=== PATIENT | female | born 1965 | race Caucasian/White ===

== ENCOUNTER 2024-08-10 15:44 | Inpatient (IN) | payer OTHER, SELFPAY ==
[2024-08-10] VITALS (8 sets, daily range): BP systolic 102–142; BP diastolic 63–85; PULSE 59–98; RESP 15–18; TEMP 36.6–37; O2SAT 98–99; BMI 25.3
--- NOTE | ~2024-08-10 | CT_ITS ---
CLINICAL HISTORY: dysarthria CT Head without contrast. CT angiography head and neck with contrast. 3D Postprocessing. Comparison: None Findings: HEAD CT: No intra-axial mass, midline shift, hydrocephalus, or acute hemorrhage. No significant atrophy-like change or white matter disease. The visualized paranasal sinuses and mastoid air cells are normal. The orbits are within normal limits. There is no acute fracture. HEAD AND NECK CTA: Aortic arch and cervical great vessels are patent. Intracranial arteries are patent. No aneurysm, dissection, or occlusion. Incidentally noted origin of the left posterior cerebral artery. No abnormal intracranial enhancement. The visualized thyroid gland is unremarkable. No cervical mass or fluid collection. Lung apices clear. No acute fracture. IMPRESSION: 1. Unremarkable head CT. 2. Patent head and neck CTA. This document has been electronically signed by: Jermaine Amaya MD on 08/10/2024 19:06:20
--- NOTE | ~2024-08-10 | MR_ITS ---
EXAMINATION: MR BRAIN WITHOUT IV CONTRAST HISTORY: TIA vs CVA TECHNIQUE: Sagittal T1 and FLAIR, and axial T1, FLAIR, T2, gradient echo, and diffusion weighted MR images of the brain were obtained. COMPARISON: Correlation is made with an unenhanced head CT dated 08/10/2024. FINDINGS: There is a large amount of magnetic stability artifact from the patient's braces. There are periventricular and subcortical white matter hyperintensities on the FLAIR and T2-weighted images which are nonspecific. These are most prominent adjacent to the trigones of the lateral ventricles. There is no mass effect or midline shift. No intra or extra-axial fluid collections are identified. No foci of restricted diffusion is seen, although the entire cerebellum and portions of the anterior aspects of the frontal lobes are completely obscured by artifact. Normal vascular flow voids are noted in the basilar and carotid arteries. The visualized paranasal sinuses are clear. MR/MR head/brain wo con IMPRESSION: 1. Large amount of magnetic susceptibility artifact which completely obscures the cerebellum and the anterior portions of the frontal lobes on diffusion-weighted images. No definite evidence of an acute infarct. 2. White matter hyperintensities most prominent adjacent to the trigones of the lateral ventricles. Differential diagnostic considerations include small vessel ischemic disease, demyelinating disease, migraine, Lyme disease, and vasculitis. Electronically signed by: Miles Powers MD 08/11/2024 02:04 PM EDT
--- NOTE | 2024-08-10 15:59 | ECG_ITS ---
Test Reason : WEAKNESS Blood Pressure : */* mmHG Vent. Rate : 83 BPM Atrial Rate : 83 BPM P-R Int : 174 ms QRS Dur : 108 ms QT Int : 366 ms P-R-T Axes : 59 27 45 degrees QTcB Int : 430 ms Normal sinus rhythm Normal ECG No previous ECGs available Referred By: Isaak Gerber Electronically Signed By: Den Duke
--- NOTE | 2024-08-10 16:01 | ED_ITS ---
HPI - General Adult General Chief complaint: General Medical Stated complaint: slurred speech, brain fog Time Seen by Provider: 08/10/24 16:00 Source: patient Mode of arrival: ambulatory Limitations: no limitations History of Present Illness ED Provider: Dr. Octavia Knapp HPI narrative: Patient comes to the emergency room complaining of multiple episodes of slurred speech. Patient states that today she was doing yd work with her daughter, within 1/2 hour, patient had 4 episodes of intermittent slurred speech. Patient's daughter got concerned, told her mother to lay down/take a nap. They stopped by [employer]. While patient was ordering her coffee, she struggled finding words, patient states she had ?brain fog? but was eventually able to get her order in. Patient then decided to come to the hospital. Patient states that back in 2011, she had a CVA. Related Data Allergies Allergy/AdvReac Type Severity Reaction Status Date / Time gluten Allergy Unknown Verified 08/10/24 15:56 milk Allergy Unknown Verified 08/10/24 15:56 Review of Systems 2 Review of Systems: Constitutional : No Weight loss, No Fever, No Chills, No Night Sweats, No Fatigue, No Malaise ENT/Mouth : No Hearing loss, No Ear Pain, No Nasal Congestion, No Sinus Pain, No Hoarseness, No sore throat, No Rhinorrhea, No Swallowing Difficulty Eyes: No Eye Pain, No Swelling, No Redness, No Foreign Body, No Discharge, No Vision Changes Cardiovascular : No Chest Pain, No SOB, No Dyspnea on Exertion, No Orthopnea, No Edema, No Palpitations Respiratory : No Cough, No Sputum, No Wheezing, No Smoke Exposure, No Dyspnea Gastrointestinal : No Nausea, No Vomiting, No Diarrhea, No Constipation, No abdominal Pain, No Hematochezia, No Melena Genitourinary : no irregular bleeding, No Dysuria, No Urinary Frequency, No Hematuria, No Urinary Incontinence, No Urgency, No Flank Pain, No Urinary Flow Changes, No Hesitancy Musculoskeletal : No joint pain, No Myalgias, No Joint Swelling Skin : No Skin Lesions, No rash Neuro : Complaining of intermittent dysarthria, No Weakness, No Numbness, No Paresthesias, No Loss of Consciousness, No Dizziness, No Headache Psych : No Anxiety/Panic, No Depression, No SI/HI/AH/VH, No Social Issues, Heme/Lymph: No Bruising, No Bleeding,No Lymphadenopathy Endocrine : No Polyuria, No Polydipsia, No Temperature Intolerance [facility] Past Medical History Medical History (Updated 08/10/24 @ 19:28 by Octavia Knapp MD) CVA (cerebral vascular accident) Hyperlipidemia Asthma Social History Social History Smoked in Last 30 Days: No Use of substances other than those prescribed or required for medical reasons: No Advance Directives: No Advance Directives Information Provided: No Do you have a plan to hurt others: No Plan Patient : No Physical Exam ED Vital Signs: Vital Signs - 24 hr 08/10/24 15:52 08/10/24 16:35 08/10/24 19:17 Temperature 98 F 98 F 98.5 F Pulse Rate 98 82 59 Respiratory Rate 18 18 18 Blood Pressure 142/85 H 123/64 Pulse Oximetry 98 99 Oxygen Delivery Method Room Air Room Air Room Air BMI result Body Mass Index 25.3 Const Other: Appearance: Alert. Oriented X3. No acute distress. Eyes: Pupils equal, round and reactive to light. ENT: Pharynx normal. Neck: Normal inspection. Neck supple. No lymph nodes noted. No crepitus CVS: Normal heart rate and rhythm. Pulses normal. Normal S1 and S2 Respiratory: No respiratory distress. Breath sounds normal. No Wheezing. No rales Abdomen: Soft and nontender. No rigidity. No distention. Skin: Skin warm and dry. Normal skin color. Normal skin turgor. Extremities: No lower extremity edema. No Lacerations. No Rash Neuro: Oriented X 3. No motor deficit. No sensory deficit. Moving all extremities. No slurred speech. CN 2 through 12 grossly intact Psych: calm, cooperative, normal affect NIH Stroke Scale Internal: Initial- Upon Arrival Level of Consciousness: Alert Level of Consciousness Questions: Answers both questions correctly Level of Consciousness Commands: Performs both tasks correctly Best Gaze: Normal Visual: No visual loss Facial Palsy: Normal Motor Arm (Right): No drift Motor Arm (Left): No drift Motor Leg (Right): No drift Motor Leg (Left): No drift Limb Ataxia: Absent Sensory: Normal Best Language: No aphasia Dysarthia: Normal Extinction and Inattention: No abnormality Score: 0 Course Course Course Narrative: RME, this is a rapid medical exam performed by Renny Gerber please refer to primary provider for complete H&P- 58 old female presents for evaluation of slurred speech and ?fogginess. ? her symptoms started 1 hour ago and lasted about 30 minutes prior to resolving. She has a previous stroke in 2011 with some right upper eyelid drooping that is chronic from that episode. She is not anticoagulated and not on antiplatelet medications. Currently she feels back to her baseline, she does have some right upper eyelid droop, no other neurologic findings Medications Administered Discontinued Medications Generic Name Dose Route Start Last Admin Trade Name Clay PRN Reason Stop Dose Admin Aspirin 325 mg 08/10/24 16:17 08/10/24 16:33 Aspirin Enteric Coated 325 Mg Tablet. PO 08/10/24 16:18 325 mg ONCE ONE Administration Sodium Chloride 1,000 mls @ 999 mls/hr 08/10/24 16:12 08/10/24 17:40 Ns IVCONT 08/10/24 17:12 Infused .Q1H1M ONE Infusion Iohexol 100 ml 08/10/24 16:51 08/10/24 16:51 Iohexol 350 Mg/Ml 100 Ml Infus..Btl IV 08/10/24 16:52 70 ml ONCE ONE Administration Medical Decision Making Medical Decision Making [facility] Narrative: My interpretation of labs: No significant abnormality in patient's hematology and chemistry, normal troponin CTA of the head and neck do not show any acute abnormality. In the emergency room, patient has not had any TIA like symptoms. Vitals are stable I discussed with the patient that given that she has been having intermittent dysarthria and history of CVA almost 13 years ago, it would be best to admit the patient, patient agrees with plan. I discussed the above-mentioned with from the Medicine team, patient being admitted Differential Diagnosis Differential Diagnoses: The differential diagnosis associated with the presentation includes (TIA, CVA, heat stroke) Admission/Observation Consideration of admission/observation: Escalation of care including admission/observation considered Consult Healthcare Provider Management of the patient was discussed with: Hospitalist Lab Data [facility] Lab Attestation statement: I reviewed the patient's lab results. 08/10/24 16:29 08/10/24 16:29 Labs: Lab Results 08/10/24 08/10/24 08/10/24 Range/Units 16:29 16:38 17:03 WBC 7.6 (4.8-10.8) X10*3/uL RBC 4.39 (4.20-5.50) X10*6/uL Hgb 13.8 (12.0-16.0) g/dl Hct 38.7 (37.0-47.0) % MCV 88.2 (80.0-98.0) fL MCH 31.4 (27.0-33.0) pg MCHC 35.7 H (31.0-35.0) g/dl RDW 12.5 (11.0-16.0) % Plt Count 287 (160-400) X10*3/uL MPV 10.1 (9.4-12.3) fL Immature Gran % (Auto) 0.3 (0.0-0.4) % Neut % (Auto) 66.6 (45-73) % Lymph % (Auto) 25.4 (20-40) % [place] % (Auto) 6.8 (2-11) % Eos % (Auto) 0.5 (0-4) % Baso % (Auto) 0.4 (0-2) % Lymph # (Auto) 1.9 (1.2-4.9) X10*3/uL [place] # (Auto) 0.5 (0.1-1.2) X10*3/uL Eos # (Auto) 0.0 (0.0-0.4) X10*3/uL Baso # (Auto) 0.0 (0.0-0.2) X10*3/uL Abs Immat Gran (auto) 0.02 (0.00-0.03) X10*3/uL Absolute Neuts (auto) 5.0 (2.0-8.3) x10*3/uL Absolute Nucleated RBC 0.000 (0.0-0.012) X10*3/uL Nucleated RBC % (auto) 0.0 (0.0-0.2) /100WBC PT 11.2 (10.9-12.4) SEC INR 1.0 (0.9-1.1) Sodium 142 (135-145) mmol/L Potassium 3.5 (3.3-5.1) mmol/L Chloride 107 (96-108) mmol/L Carbon Dioxide 22 (22-29) mmol/L Anion Gap 17 (12-20) BUN 18 H (9-16) mg/dL Creatinine 0.95 (0.5-1.4) mg/dL Estim Creat Clear Calc 54.8 Estimated GFR > 60 POC Glucose 69 90 (60-115) mg/dL Random Glucose 81 (60-115) mg/dL Calcium 9.8 (8.4-10.2) mg/dL Total Bilirubin 0.7 (0.0-1.0) mg/dL AST 26 (5-31) U/L ALT 23 (0-31) U/L Alkaline Phosphatase 73 (39-117) U/L Total Creatine Kinase 55 (26-140) U/L Troponin I High Sens < 2.7 (<3.5-17.0) ng/L Total Protein 7.7 (6.5-8.0) g/dL Albumin 4.6 (3.5-5.0) g/dL Lipase 16 (8-78) U/L Ethyl Alcohol < 10 mg/dL Independent Interpretation I performed an independent interpretation of an: EKG and CT Scan Interpretation: My interpretation of EKG: Normal sinus rhythm, heart rate 83, no ST segment depression or elevation, no T-wave inversion, QTC 430 Radiology Impression Discussion of test interpretation with radiology: I have reviewed the radiologist's reading. Radiologist Impression: HEAD CT: No intra-axial mass, midline shift, hydrocephalus, or acute hemorrhage. No significant atrophy-like change or white matter disease. The visualized paranasal sinuses and mastoid air cells are normal. The orbits are within normal limits. There is no acute fracture. HEAD AND NECK CTA: Aortic arch and cervical great vessels are patent. Intracranial arteries are patent. No aneurysm, dissection, or occlusion. Incidentally noted origin of the left posterior cerebral artery. No abnormal intracranial enhancement. The visualized thyroid gland is unremarkable. No cervical mass or fluid collection. Lung apices clear. No acute fracture. IMPRESSION: 1. Unremarkable head CT. 2. Patent head and neck CTA. Critical Care Time Critical Care Time Critical Care Time: Yes Total Critical Care Time: 60 Attestation: I have personally provided critical care time. Time includes review of lab data, radiology results, discussion with consultants, and monitoring for potential decompensation. Intervention performed as documented. Discharge Plan Discharge Clinical Impression: Brain TIA Patient Disposition: Admitted As Inpatient Print Language: Sinhala
[2024-08-10] MEDS: 0.9 % Sodium Chloride 1,000 ML 999 ML IVCONT (16:32)
[2024-08-10] MEDS: Aspirin Enteric Coated 325 MG TABLET.DR PO (16:33)
[2024-08-10 16:36] LABS: MANUAL DIFF FLAG NO
[2024-08-10 16:39] LABS: Basophils Percent Auto 0.4 % (0-2); Eosinophils Percent Auto 0.5 % (0-4); Hematocrit 38.7 % (37.0-47.0); Hemoglobin 13.8 g/dl (12.0-16.0); Imm Gran Abs Auto 0.02 X10*3/uL (0.00-0.03); Imm Gran Pct Auto 0.3 % (0.0-0.4); Lymphocytes Absolute Auto 1.9 X10*3/uL (1.2-4.9); Lymphocytes Percent Auto 25.4 % (20-40); Mean Corpuscular HGB Conc 35.7 g/dl (31.0-35.0); Mean Corpuscular Hemoglobin 31.4 pg (27.0-33.0); Mean Corpuscular Volume 88.2 fL (80.0-98.0); Mean Platelet Volume 10.1 fL (9.4-12.3); Monocytes Absolute Auto 0.5 X10*3/uL (0.1-1.2); Monocytes Percent Auto 6.8 % (2-11); Neutrophils Percent Auto 66.6 % (45-73); Platelet Count 287 X10*3/uL (160-400); Red Blood Count 4.39 X10*6/uL (4.20-5.50); Red Cell Distribution Width 12.5 % (11.0-16.0); White Blood Count 7.6 X10*3/uL (4.8-10.8)
[2024-08-10 16:42] LABS: Glucose, Whole Blood 69 mg/dL (60-115)
[2024-08-10 16:46] LABS: Prothrombin Time 11.2 SEC (10.9-12.4)
--- NOTE | 2024-08-10 16:46 | MHC.EDTECH ---
Patient POC was 69. I gave her apple juice to increase her POC.
[2024-08-10] MEDS: iohexoL 350 MG/ML 100 ML INFUS..BTL IV (16:51)
[2024-08-10 16:53] LABS: Ethanol < 10 mg/dL
[2024-08-10 16:54] LABS: Alanine Aminotransferase 23 U/L (0-31); Albumin Level 4.6 g/dL (3.5-5.0); Alkaline Phosphatase 73 U/L (39-117); Anion Gap 17 (12-20); Aspartate Amino Transferase 26 U/L (5-31); Bilirubin Total 0.7 mg/dL (0.0-1.0); Blood Urea Nitrogen 18 mg/dL (9-16); Calcium 9.8 mg/dL (8.4-10.2); Carbon Dioxide 22 mmol/L (22-29); Chloride 107 mmol/L (96-108); Creatinine Clr Calc Pharmacy 54.8; Estimated Glomerular Filt Rate > 60; Glucose Random 81 mg/dL (60-115); Lipase 16 U/L (8-78); Potassium 3.5 mmol/L (3.3-5.1); Sodium 142 mmol/L (135-145); Total Protein 7.7 g/dL (6.5-8.0)
[2024-08-10 17:03] LABS: Troponin-I High Sensitivity < 2.7 ng/L (<3.5-17.0)
[2024-08-10 17:08] LABS: Glucose, Whole Blood 90 mg/dL (60-115)
[2024-08-10 19:28] LABS: Appearance Urine Clear; Color Urine Yellow; Glucose Urine UA Negative (Negative); Leukocyte Esterase Urine Trace (Negative); Nitrite Urine Negative (Negative); Specific Gravity - Urine >= 1.030 (1.005-1.025); UMIC TRIGGER UACC YES; Urine Blood Negative (Negative); Urine Ketones Trace mg/dL (Negative); Urine Protein Negative (Neg-Trace)
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
--- NOTE | 2024-08-10 19:30 | PC.NURSE ---
Patient is alert and oriented x3, VSS. Patient denies any pain at present. Patient ambulated to restroom and back to her room independently with a steady gait. Patient currently resting on stretcher bed, call menjivar in patient's reach.
[2024-08-10 19:33] LABS: Bacteria Urine None Seen (None Seen); Hyaline Casts Urine 0-2 /LPF (0-2); RBC Urine 0-2 /HPF (0-2); Squamous Epithelial Cell Urine 0-2 /HPF (0-2); WBC Urine 0-5 /HPF (0-5)
[2024-08-10 19:38] LABS: Amphetamine Screen Urine Not Detected (Not Detect); Barbiturates, Urine Not Detected (Not Detect); Benzodiazepines Screen Urine Not Detected (Not Detect); Buprenorphine Scr Not Detected (Not Detect); Cannabinoid Screen Urine Not Detected (Not Detect); Cocaine Screen Urine Not Detected (Not Detect); Fentanyl, urine Not Detected (Not Detect); Methadone Screen, Urine Not Detected (Not Detect); Opiate Screen Urine Not Detected (Not Detect); Oxycodone Screen Urine Not Detected (Not Detect); Phencyclidine Screen Urine Not Detected (Not Detect)
[2024-08-10 19:52] LABS: Magnesium 2.1 mg/dL (1.6-2.6)
[2024-08-10 20:07] LABS: TSH reflex Free T4 2.07 uIU/mL (0.32-4.0)
[2024-08-10] MEDS: Sennosides 8.6 MG TABLET 17.2 MG PO (20:26)
[2024-08-10] MEDS: Enoxaparin Sodium 40 MG/0.4 ML SYRINGE SUBCUT (20:27)
--- NOTE | 2024-08-10 20:34 | PC.NURSE ---
Family visiting at bedside and brought patient food. Regular diet order in place and pt eating.
[2024-08-10 21:56] LABS: Glucose, Whole Blood 96 mg/dL (60-115)
[2024-08-11] VITALS (7 sets, daily range): BP systolic 92–128; BP diastolic 62–80; PULSE 58–87; RESP 12–17; TEMP 36.3–36.8; O2SAT 96–99; BMI 24.5; BMI 24.4
[2024-08-11] MEDS: 0.9 % Sodium Chloride Flush 3 ML SYRINGE IVFLUSH ×3 (00:03→18:31)
[2024-08-11 05:35] LABS: MANUAL DIFF FLAG NO
[2024-08-11 05:36] LABS: Basophils Percent Auto 0.6 % (0-2); Eosinophils Absolute Auto 0.1 X10*3/uL (0.0-0.4); Eosinophils Percent Auto 1.3 % (0-4); Hematocrit 36.9 % (37.0-47.0); Hemoglobin 12.6 g/dl (12.0-16.0); Imm Gran Abs Auto 0.01 X10*3/uL (0.00-0.03); Imm Gran Pct Auto 0.1 % (0.0-0.4); Lymphocytes Absolute Auto 2.5 X10*3/uL (1.2-4.9); Lymphocytes Percent Auto 37.4 % (20-40); Mean Corpuscular HGB Conc 34.1 g/dl (31.0-35.0); Mean Corpuscular Hemoglobin 31.4 pg (27.0-33.0); Mean Platelet Volume 10.4 fL (9.4-12.3); Monocytes Absolute Auto 0.6 X10*3/uL (0.1-1.2); Monocytes Percent Auto 8.3 % (2-11); Neutrophils Absolute Auto 3.5 x10*3/uL (2.0-8.3); Neutrophils Percent Auto 52.3 % (45-73); Platelet Count 274 X10*3/uL (160-400); Red Blood Count 4.01 X10*6/uL (4.20-5.50); Red Cell Distribution Width 12.7 % (11.0-16.0); White Blood Count 6.8 X10*3/uL (4.8-10.8)
[2024-08-11 05:51] LABS: D Dimer High Sensitivity < 150 NG/ML
[2024-08-11 05:57] LABS: B Type Natriuretic Peptide 65 pg/mL (<100)
[2024-08-11 05:58] LABS: Alanine Aminotransferase 12 U/L (0-31); Albumin Level 3.8 g/dL (3.5-5.0); Anion Gap 13 (12-20); Aspartate Amino Transferase 22 U/L (5-31); Bilirubin Total 0.5 mg/dL (0.0-1.0); Blood Urea Nitrogen 15 mg/dL (9-16); Calcium 8.9 mg/dL (8.4-10.2); Carbon Dioxide 21 mmol/L (22-29); Chloride 112 mmol/L (96-108); Cholesterol 187 mg/dL (<200); Creatinine Clr Calc Pharmacy 66.8; Estimated Glomerular Filt Rate > 60; Glucose Random 86 mg/dL (60-115); HDL Cholesterol 64 mg/dL (>40); LDL Cholesterol Calculated 113 mg/dL (<100); Potassium 3.8 mmol/L (3.3-5.1); Sodium 142 mmol/L (135-145); Total Protein 6.3 g/dL (6.5-8.0); Triglycerides 50 mg/dL (<150)
[2024-08-11 06:04] LABS: Alkaline Phosphatase 60 U/L (39-117)
--- NOTE | 2024-08-11 07:00 | CA_ITS ---
Transthoracic Echocardiogram Patient (Last, First, Middle): Nia Torres, Gender: Female Date of : 1965 Age: 58 Procedure Date: 08/11/2024 Procedure Type: Transthoracic Echocardiogram Location: ER Height: 157.48 cm Weight: 62.6 kg BSA: 1.63 m2 Heart Rate: 67 bpm BP: 128 / 75 mmHg Ssis Developer: LEA Referring MD: Kaitlin Dubois [facility] Life Enrichment Specialist: Elvin Winchester MD Symptoms: TIA vs CVA Study Quality: Adequate w/Definity ECG Rhythm: Sinus Conclusions: - 1. PFO noted on bubble contrast study after Valsalva release 2. Normal LV ejection fraction of 65-70% 3. Normal cardiac valvular Dopplers 4. Normal RV systolic pressure Findings Procedure Information Contrast agent, definity, is being given per protocol without apparent complications. Left Ventricle Normal left ventricular size, thickness, and systolic function. The visually estimated ejection fraction is between 65-70%. Spectral Doppler is indicative of a normal filling pattern. Right Ventricle Normal right ventricular cavity size and systolic function. Atria Both atria are normal in size. Contrast study for right to left shunting is moderately positive with Valsalva maneuver. Patent foramen ovale detected using by contrast. There is shunt reversal with the release phase of the Valsalva maneuver. Aortic Valve Normal aortic valve structure and function. There is no aortic valve stenosis. There is no aortic valve regurgitation. Mitral Valve Normal mitral valve structure and function. There is trace mitral valve regurgitation. There is no mitral valve stenosis. Pulmonic Valve The pulmonic valve is likely normal. Tricuspid Valve Normal tricuspid valve structure. There is trace tricuspid valve regurgitation. The right ventricular systolic pressure is normal. The right ventricular systolic pressure is 11 mmHg. Normal right atrial pressure. There is no evidence of pulmonary hypertension. Great Vessels All visible segments of the aorta are normal in size. The pulmonary artery was not well visualized. Venous The inferior vena cava is normal in size and collapses greater than 50% with inspiration. Pericardium/Pleural There is no evidence of pericardial effusion. Prior Study Comparison No prior study available for comparison. Measurements 2D Linear Measurements IVSd: 0.67 0.6-0.9/0.6-1.0 cm LVIDd: 4.63 3.9-5.3/4.2-5.9 cm LVIDd Index: 2.84 2.4-3.2/2.2-3.1 cm/m2 LVIDs: 3.10 2.0-3.6 cm LVPWd: 0.64 0.7-1.1 cm LA Diam: 2.90 2.7-3.8/3.0-4.0 cm LAIDs Index: 1.78 1.5-2.3 cm/m2 LV Mass: 115.41 67-162/88-224 g LV Mass Index: 70.80 43-95/49-115 g/m2 LVOT Diam: 2.00 3.0+(-)1.3 cm 2D Systolic Function EF 4C: 68.30 >55% EF 2C: 60.30 >55% EF BiP: 65.40 >55% Mitral Valve MV Pk E: 0.80 MV PK A: 0.74 MV Decel Time: 197.00 E/A: 1.10 E'Lateral: 11.10 E'Medial: 7.94 E/E' Med: 10.00 E/E' Lat: 7.20 PHT: 58.00 MVA PHT: 3.79 Decel [place]: 4.04 Aortic Valve AoV Pk Osiel: 1.30 AoV Pk Grad: 7.00 BERNARDA: 3.98 LVOT LVOT Pk Osiel: 1.48 LVOT Mn Osiel: 0.96 LVOT VTI: 0.30 LVOT Pk Grad: 9.00 LVOT Mn Grad: 5.00 LVOT Diam: 2.00 LVOT Area: 3.14 Diastolic Function MV Pk E: 0.80 MV Pk A: 0.74 E/A: 1.10 E'Medial: 7.94 E/E' Med: 10.00 E' Laterial: 11.10 E/E' Lat: 7.20 Right Ventricle TAPSE (mm): 25.80 TVS' Osiel: 13.60 Tricuspid Valve TR Pk Osiel: 1.42 TR Pk Grad: 8.00 RA Press: 3.00 RVSP: 11.00 Great Vessels Aorta Sinus of Valsalva: 3.70 2.0-3.5 cm Ao Asc: 3.70 2.1-3.4 cm Ao Arch: 2.30 Ao Desc: 2.00 Pulmonary Veins Pulm Vein S/D 1.10 Pulmonary Valve PV Pk Osiel: 0.67 Peak PV Grad: 2.00 Updated in Other Vendor System with Status of Final Elvin Winchester MD electronically signed on 08/11/2024 3:07:20 PM with status of Final
[2024-08-11 07:25] LABS: Glucose, Whole Blood 88 mg/dL (60-115)
--- NOTE | 2024-08-11 08:21 | P.PNIM_ITS ---
Subjective Subjective Date of Service: 08/11/24 Interval History: symptoms resolved Physical Exam 2 Vital Signs: Vital Signs: Last Vital Signs Temp 97.3 F 08/11/24 07:52 Pulse 68 08/11/24 07:52 Resp 17 08/11/24 07:52 BP 128/75 08/11/24 07:52 Pulse Ox 97 08/11/24 07:52 O2 Del Method Room Air 08/11/24 07:52 BMI result Body Mass Index 25.3 General: AO X 3, no acute distress Resp: CTA bilateral, no accessory muscles used CVS: S1,S2,RRR GI: soft, non tender, non distended Neuro: right eye ptosis Psych: appropriate affect, appropriate insight Objective Data Active Medications Acetaminophen (Acetaminophen 325 Mg Tablet) 650 mg PO Q6H PRN PRN Reason: Pain, Mild 1-3,fever,headache Aspirin (Aspirin 81 Mg Tab.Chew) 81 mg PO DAILY [facility] Calcium Carbonate (Calcium Carbonate 750 Mg Tab.Chew) 750 mg PO Q4H PRN PRN Reason: Heartburn Enoxaparin Sodium (Enoxaparin Sodium 40 Mg/0.4 Ml Syringe) 40 mg SUBCUT Q24H [facility] Last Admin: 08/10/24 20:27 Dose: 40 mg Documented By: BASILIO Magnesium Hydroxide (Milk Of Magnesia 30 Ml Oral.Susp) 30 ml PO DAILY PRN PRN Reason: Constipation Melatonin (Melatonin 3 Mg Tablet) 6 mg PO BEDTIME PRN PRN Reason: Insomnia Ondansetron HCl (Ondansetron Hcl 4 Mg/2 Ml Vial) 4 mg IVPUSH Q8H PRN PRN Reason: Nausea and Vomiting Senna (Sennosides 8.6 Mg Tablet) 17.2 mg PO BEDTIME [facility] Last Admin: 08/10/24 20:26 Dose: 17.2 mg Documented By: BASILIO Sodium Chloride (0.9 % Sodium Chloride Flush 3 Ml Syringe) 3 ml IVFLUSH QSHIFT [facility] Last Admin: 08/11/24 00:03 Dose: 3 ml Documented By: SELENA Labs 08/11/24 05:06 08/11/24 05:06 Labs: Laboratory Results - last 24 hr 08/10/24 08/10/24 08/10/24 16:29 16:38 17:03 MCV 88.2 MCH 31.4 MCHC 35.7 H RDW 12.5 Plt Count 287 MPV 10.1 Immature Gran % (Auto) 0.3 Neut % (Auto) 66.6 Lymph % (Auto) 25.4 Kleberg % (Auto) 6.8 Eos % (Auto) 0.5 Baso % (Auto) 0.4 Lymph # (Auto) 1.9 Kleberg # (Auto) 0.5 Eos # (Auto) 0.0 Baso # (Auto) 0.0 Abs Immat Gran (auto) 0.02 Absolute Neuts (auto) 5.0 Absolute Nucleated RBC 0.000 Nucleated RBC % (auto) 0.0 PT 11.2 INR 1.0 D-Dimer High Sensitivty Anion Gap 17 Estim Creat Clear Calc 54.8 Estimated GFR > 60 POC Glucose 69 90 Random Glucose 81 Calcium 9.8 Magnesium 2.1 Total Bilirubin 0.7 AST 26 ALT 23 Alkaline Phosphatase 73 Total Creatine Kinase 55 B-Natriuretic Peptide Total Protein 7.7 Albumin 4.6 Triglycerides Cholesterol LDL Cholesterol, Calc HDL Cholesterol Lipase 16 TSH 2.07 Urine Color Urine Appearance Urine pH Ur Specific [place] Urine Protein Urine Glucose (UA) Urine Ketones Urine Blood Urine Nitrite Ur Leukocyte Esterase Urine RBC Urine WBC Ur Squamous Epith Cells Urine Bacteria Hyaline Casts Urine Opiates Screen Ur Buprenorphine Scrn Ur Oxycodone Screen Urine Methadone Screen Urine Fentanyl Screen Ur Barbiturates Screen Ur Phencyclidine Scrn Ur Amphetamines Screen U Benzodiazepines Scrn Urine Cocaine Screen U Marijuana (THC) Screen Ethyl Alcohol < 10 08/10/24 08/10/24 08/11/24 19:20 21:50 05:06 MCV 92.0 MCH 31.4 MCHC 34.1 RDW 12.7 Plt Count 274 MPV 10.4 Immature Gran % (Auto) 0.1 Neut % (Auto) 52.3 Lymph % (Auto) 37.4 Kle[place] % (Auto) 8.3 Eos % (Auto) 1.3 Baso % (Auto) 0.6 Lymph # (Auto) 2.5 [place] # (Auto) 0.6 Eos # (Auto) 0.1 Baso # (Auto) 0.0 Abs Immat Gran (auto) 0.01 Absolute Neuts (auto) 3.5 Absolute Nucleated RBC 0.000 Nucleated RBC % (auto) 0.0 PT INR D-Dimer High Sensitivty < 150 Anion Gap 13 Estim Creat Clear Calc 66.8 Estimated GFR > 60 POC Glucose 96 Random Glucose 86 Calcium 8.9 D Magnesium Total Bilirubin 0.5 AST 22 ALT 12 Alkaline Phosphatase 60 Total Creatine Kinase B-Natriuretic Peptide 65 Total Protein 6.3 L Albumin 3.8 Triglycerides 50 Cholesterol 187 LDL Cholesterol, Calc 113 H HDL Cholesterol 64 Lipase TSH Urine Color Yellow Urine Appearance Clear Urine pH 8.0 Ur Specific [place] >= 1.030 H Urine Protein Negative Urine Glucose (UA) Negative Urine Ketones Trace Urine Blood Negative Urine Nitrite Negative Ur Leukocyte Esterase Trace H Urine RBC 0-2 Urine WBC 0-5 Ur Squamous Epith Cells 0-2 Urine Bacteria None Seen Hyaline Casts 0-2 Urine Opiates Screen Not Detected Ur Buprenorphine Scrn Not Detected Ur Oxycodone Screen Not Detected Urine Methadone Screen Not Detected Urine Fentanyl Screen Not Detected Ur Barbiturates Screen Not Detected Ur Phencyclidine Scrn Not Detected Ur Amphetamines Screen Not Detected U Benzodiazepines Scrn Not Detected Urine Cocaine Screen Not Detected U Marijuana (THC) Screen Not Detected Ethyl Alcohol 08/11/24 07:21 MCV MCH MCHC RDW Plt Count MPV Immature Gran % (Auto) Neut % (Auto) Lymph % (Auto) [place] % (Auto) Eos % (Auto) Baso % (Auto) Lymph # (Auto) [place] # (Auto) Eos # (Auto) Baso # (Auto) Abs Immat Gran (auto) Absolute Neuts (auto) Absolute Nucleated RBC Nucleated RBC % (auto) PT INR D-Dimer High Sensitivty Anion Gap Estim Creat Clear Calc Estimated GFR POC Glucose 88 Random Glucose Calcium Magnesium Total Bilirubin AST ALT Alkaline Phosphatase Total Creatine Kinase B-Natriuretic Peptide Total Protein Albumin Triglycerides Cholesterol LDL Cholesterol, Calc HDL Cholesterol Lipase TSH Urine Color Urine Appearance Urine pH Ur Specific [place] Urine Protein Urine Glucose (UA) Urine Ketones Urine Blood Urine Nitrite Ur Leukocyte Esterase Urine RBC Urine WBC Ur Squamous Epith Cells Urine Bacteria Hyaline Casts Urine Opiates Screen Ur Buprenorphine Scrn Ur Oxycodone Screen Urine Methadone Screen Urine Fentanyl Screen Ur Barbiturates Screen Ur Phencyclidine Scrn Ur Amphetamines Screen U Benzodiazepines Scrn Urine Cocaine Screen U Marijuana (THC) Screen Ethyl Alcohol Assessment and Plan (1) Slurred speech: Status: Acute Plan 58F PMH low back pain, small PFO, CVA in 2011, chronic right eye ptosis presented with episode of slurred speech and fatigue slurred speech/fatigue rule out tia/cva ?MG - check antibodies asa, statin, pt/OT, neuro, check mri, echo history of cva asa, statin dvt prophylaxis - lovenox full code reason for continued hospitalization: working up slurred speech Quality Stroke Does the patient have a stroke diagnosis?: No Reason for No Anti-thrombotic by Day Two: N/A - Med Ordered VTE Prior VTE?: No VTE Risk Level:: Medical - moderate - high VTE Device Contraindication: N/A - Device Ordered VTE Drug Contraindication: N/A - Med Ordered
[2024-08-11] MEDS: Aspirin 81 MG TAB.CHEW PO (08:55)
--- NOTE | 2024-08-11 09:00 | PC.NURSE ---
Pt A&O X4 VSS Denies cmplaints at this time.
[2024-08-11 09:03] LABS: Estimated Average Glucose 108 mg/dL; Hemoglobin A1C 115.1551 umol/L; Hemoglobin A1c % 5.4 % (<6.0); Total Hemoglobin (HGBA1C) 3284.2595 umol/L
--- NOTE | 2024-08-11 09:15 | PHA.MEDREC ---
Addendum entered by Rahel Mark RP 08/11/24 09:22: Reviewed by [facility] Original Note: Pharmacy Consult ? Medication Reconciliation Pharmacy has completed the medication reconciliation. Patient states she is only taking Meloxicam 15 mg and Pregabalin 50 mg at bedtime, even though claims has Pregabalin 50 mg BID last fill date 05/22/24.
--- NOTE | 2024-08-11 09:15 | MHC.SLORD ---
Speech Language Pathology Order Status: BELLSTAND ATTENDANT consult cx per MD no longer needed.
--- NOTE | 2024-08-11 12:29 | MHC.CM.PN ---
CM met with Patient at bedside, in the ED. Patient lives in a house with her 2 children, ages 17 and 21 years of age. Per PT, no PT is indicated;Patient is at baseline. Home self care is the Patient's goal and CM has initiated and will follow for dc planning. PCP is Dr. Taveras and Patient's car is here for dc to home vs her Route Driver providing transport.
--- NOTE | 2024-08-11 15:11 | MHC.STROKE ---
Met with patient in ED bed 8 Pt awake, alert and oriented x 4. No deficits noted. Pt is pleasant, engaged in conversation. Stroke Education provided. Pamphlet given and all questions answered. Risk factors discussed including medical history, medications, activity, diet, and social hx. Awaiting MRI results and neuro consult. Pt aware and agreeable to plan. Patient is Hoping to be discharged either today or tomorrow. Will continue to assist as needed.
--- NOTE | 2024-08-11 16:12 | PM.NEUROCN ---
History of Present Illness Data of Consult Service Date: 08/11/24 Primary Care Provider: Kianna Johnson MD [facility] Reason for consult: transient generalized weakness This is a 58-year-old female presented to the emergency department after a sudden onset of head to toe body fatigue with heaviness, slurred speech after working in the yard approximately 2 hours today. Symptoms did completely resolve. She has past medical history of chronic low back pain secondary to degenerative joint disease, PFO dx 2011 too small to repair, left hip osteoarthritis currently receiving cortisone injections, migraines without aura,insomnia, previous ? CVA 2011 was not formally diagnosed until 2013 at [facility] with chronic right eye ptosis, GERD, intermittent dysphagia especially when eating the 1st few bites of food, seasonal asthma using rescue inhaler only. Due to her history of CVA, patient decided to be seen today. Patient states that she has been experiencing increased shortness of breath especially with exertion and this head to toe fatigue with heaviness not just today but when she is exerting herself. Patient's last migraine was approximately 6 months prior. Patient was supposed to be taking aspirin daily but has not been taking this medication for some time. Head CT and CTA of the head and neck were all unremarkable. No evidence of previous stroke found on head CT. MRI show sno acute stroke. peritrigonal white matter lesions and some scattered deep white matter non specific lesions c/w microvascular disease. Patient's blood sugar was 69 here in the ED. patient denies history of low blood sugar. Patient has been started recently on Lyrica for her lower back pain. Patient takes no other usual prescription meds. Patient was recently prescribed an anti-inflammatory by her orthopedist for her left hip pain. 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 Travel History Ebola Risk: Travel/Contact With Anyone From Affected Area/s: No Has Patient Experienced Ebola Symptoms: No Meds Allergies Allergy/AdvReac Type Severity Reaction Status Date / Time gluten Allergy Unknown Verified 08/10/24 15:56 milk Allergy Unknown Verified 08/10/24 15:56 Active Medications: Current Medications Acetaminophen (Acetaminophen 325 Mg Tablet) 650 mg PO Q6H PRN PRN Reason: Pain, Mild 1-3,fever,headache Aspirin (Aspirin 81 Mg Tab.Chew) 81 mg PO DAILY [facility] Last Admin: 08/11/24 08:55 Dose: 81 mg Atorvastatin Calcium (Atorvastatin Calcium 40 Mg Tablet) 40 mg PO BEDTIME [facility] Calcium Carbonate (Calcium Carbonate 750 Mg Tab.Chew) 750 mg PO Q4H PRN PRN Reason: Heartburn Enoxaparin Sodium (Enoxaparin Sodium 40 Mg/0.4 Ml Syringe) 40 mg SUBCUT Q24H [facility] Last Admin: 08/10/24 20:27 Dose: 40 mg Magnesium Hydroxide (Milk Of Magnesia 30 Ml Oral.Susp) 30 ml PO DAILY PRN PRN Reason: Constipation Melatonin (Melatonin 3 Mg Tablet) 6 mg PO BEDTIME PRN PRN Reason: Insomnia Ondansetron HCl (Ondansetron Hcl 4 Mg/2 Ml Vial) 4 mg IVPUSH Q8H PRN PRN Reason: Nausea and Vomiting Pregabalin (Pregabalin 50 Mg Capsule) 50 mg PO BEDTIME [facility] Senna (Sennosides 8.6 Mg Tablet) 17.2 mg PO BEDTIME [facility] Last Admin: 08/10/24 20:26 Dose: 17.2 mg Sodium Chloride (0.9 % Sodium Chloride Flush 3 Ml Syringe) 3 ml IVFLUSH QSHIFT [facility] Last Admin: 08/11/24 08:56 Dose: 3 ml Home Medications ?Medication ?Instructions ?Recorded ?Confirmed ?Last Taken ?Type meloxicam 15 mg tablet 15 mg PO DAILY 08/11/24 08/11/24 08/08/24 History pregabalin 50 mg capsule 50 mg PO BEDTIME 08/11/24 08/11/24 08/08/24 History Physical Exam Vital Signs: Vital Signs: Last Vital Signs Temp 97.6 F 08/11/24 11:42 Pulse 60 08/11/24 11:42 Resp 12 08/11/24 11:42 BP 106/70 08/11/24 11:42 Pulse Ox 97 08/11/24 11:42 O2 Del Method Room Air 08/11/24 11:42 BMI result Body Mass Index 25.3 Neuro: Other: Mild ptosis Results Labs 08/11/24 05:06 08/11/24 05:06 Labs: Short CBC 08/10/24 08/11/24 Range/Units 16:29 05:06 WBC 7.6 6.8 (4.8-10.8) X10*3/uL Hgb 13.8 12.6 (12.0-16.0) g/dl Hct 38.7 36.9 L (37.0-47.0) % Plt Count 287 274 (160-400) X10*3/uL BMP 08/10/24 08/11/24 16:29 05:06 Sodium 142 142 Potassium 3.5 3.8 Chloride 107 112 H Carbon Dioxide 22 21 L BUN 18 H 15 Creatinine 0.95 0.78 Calcium 9.8 8.9 D Cardiac Enzymes 08/10/24 Range/Units 16:29 Total Creatine Kinase 55 (26-140) U/L Liver Function 08/10/24 08/11/24 Range/Units 16:29 05:06 Total Bilirubin 0.7 0.5 (0.0-1.0) mg/dL AST 26 22 (5-31) U/L ALT 23 12 (0-31) U/L Alkaline Phosphatase 73 60 (39-117) U/L Albumin 4.6 3.8 (3.5-5.0) g/dL Urine 08/10/24 Range/Units 19:20 Urine Color Yellow Urine Appearance Clear Urine pH 8.0 (5.0-9.0) Ur Specific [place] >= 1.030 H (1.005-1.025) Urine Protein Negative (Neg-Trace) mg/dL Urine Glucose (UA) Negative (Negative) mg/dL Assessment and Plan (1) Slurred speech: Status: Acute Transient slurring and generalized weakness- non specific. No evidence of stroke clinically or on MRI. CTA normal. Has mild cerebral microvascular disease. In view of some h/o dysphagia and ptosis, would recommend Acetylcholine receptor antibodies, Thyroid profile and CPK. Procedures Date of Service Date of Service: 08/11/24
[2024-08-11] MEDS: Atorvastatin Calcium 40 MG TABLET PO (21:13)
[2024-08-11] MEDS: Enoxaparin Sodium 40 MG/0.4 ML SYRINGE SUBCUT (21:13)
[2024-08-11] MEDS: Sennosides 8.6 MG TABLET 17.2 MG PO (21:13)
[2024-08-11] MEDS: Pregabalin 50 MG CAPSULE PO (21:14)
[2024-08-12] VITALS: BP 105/66; PULSE 67; RESP 17; TEMP 35.9; O2SAT 98
[2024-08-12 03:40] VITALS: BP 108/68; PULSE 64; RESP 16; TEMP 35.8; O2SAT 98
[2024-08-12 06:21] VITALS: BP 116/72; PULSE 59
[2024-08-12 06:23] VITALS: BP 113/75; BP 119/79; PULSE 63; PULSE 80
[2024-08-12 07:06] VITALS: BP 103/68; PULSE 55; RESP 17; TEMP 36.1; O2SAT 98
[2024-08-12 07:32] LABS: C Reactive Protein < 0.10 mg/dL (< or = 0.50)
[2024-08-12 08:04] LABS: Erythrocyte Sedimentation Rate 7 MM/HR (0-20)
[2024-08-12] MEDS: 0.9 % Sodium Chloride Flush 3 ML SYRINGE IVFLUSH (08:22)
[2024-08-12] MEDS: Aspirin 81 MG TAB.CHEW PO (08:22)
[2024-08-12] MEDS: Acetaminophen 325 MG TABLET 650 MG PO (08:22)
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
[2024-08-12 11:07] VITALS: BP 100/68; PULSE 71; RESP 18; TEMP 36.1; O2SAT 97
--- NOTE | 2024-08-12 12:08 | MHC.CM.PN ---
Pt is medically cleared for discharge home self-care, she has arranged her own transport home.
[2024-08-13 03:58] LABS: Lyme Abs Screen <0.90 index
[2024-08-13 12:44] LABS: Complement C3 136 mg/dL (83-193)
[2024-08-14 12:04] LABS: Anti Nuclear Antibody Screen NEGATIVE (NEGATIVE)
[2024-08-15 15:58] LABS: Acetylcholine Recep Modulating 20
[2024-08-15 19:39] LABS: Acetylcholine Receptor Binding <0.30 nmol/L
[2024-08-17 03:06] LABS: Acetylcholine Recept. Blocking <15 (<15)
== END 2024-08-12 13:21 | disposition home or self-care (01) | DRG 58 ==
LOC: HO.ED 19:28 → HO.EDOVER 20:23 → HO.IMC 08-11 16:33
PROVIDERS: Internal Medicine; Physician Assistant; Admitting Provider Nurse Practitioner Family; Emergency Provider Emergency Medicine; PCP Internal Medicine; Visit Provider Internal Medicine
DX: R47.81 Slurred speech (principal); Q21.12 Patent foramen ovale; E16.2 Hypoglycemia, unspecified; K21.9 Gastro-esophageal reflux disease without esophagitis; M54.59 Other low back pain; G89.29 Other chronic pain; T39.016A Underdosing of aspirin, initial encounter; Z79.899 Other long term (current) drug therapy
CPT/HCPCS: 36415; 70496; 70498; 70551; 80053; 80061; 80307; 81001; 82550; 82947; 83036; 83690; 83735; 83880; 84443; 84484; 85025; 85379; 85610; 85652; 86038; 86041; 86042; 86043; 86140; 86160; 86617; 86618; 93005; 93306; 97161; 97165; 99222; 99285; J1650; Q9957; Q9967

== ENCOUNTER → 2024-08-10 15:58 | Outpatient (BNV) | payer OTHER, SELFPAY | PROVIDERS: Emergency Provider Emergency Medicine; PCP Internal Medicine; Visit Provider Radiology Diagnostic Radiology | DX: R47.1 Dysarthria and anarthria (principal) | CPT/HCPCS: 70496; 70498 ==

== ENCOUNTER → 2024-08-10 15:59 | Outpatient (BNV) | payer OTHER, SELFPAY | PROVIDERS: Admitting Provider Nurse Practitioner Family; Emergency Provider Emergency Medicine; PCP Internal Medicine; Visit Provider Internal Medicine Cardiovascular Disease | DX: R53.1 Weakness (principal) | CPT/HCPCS: 93010 ==

== ENCOUNTER 2024-08-10 19:25 | Outpatient (BNV) | payer OTHER, SELFPAY | END 2024-08-11 07:00 | PROVIDERS: Admitting Provider Nurse Practitioner Family; Emergency Provider Emergency Medicine; PCP Internal Medicine; Visit Provider Internal Medicine Cardiovascular Disease | DX: Q21.12 Patent foramen ovale (principal); I63.9 Cerebral infarction, unspecified | CPT/HCPCS: 93303; 93320; 93325 ==

== ENCOUNTER 2024-08-10 19:25 | Outpatient (BNV) | payer OTHER, SELFPAY | END 2024-08-11 12:50 | PROVIDERS: Admitting Provider Nurse Practitioner Family; Emergency Provider Emergency Medicine; PCP Internal Medicine; Visit Provider Radiology Diagnostic Radiology | DX: R90.89 Other abnormal findings on diagnostic imaging of central nervous system (principal) | CPT/HCPCS: 70551 ==

== ENCOUNTER → 2024-08-10 19:25 | Outpatient (BNV) | payer OTHER, SELFPAY | PROVIDERS: Admitting Provider Nurse Practitioner Family; Emergency Provider Emergency Medicine; PCP Internal Medicine; Visit Provider Psychiatry & Neurology Neurology | DX: R47.81 Slurred speech (principal) | CPT/HCPCS: 99222 ==

== ENCOUNTER → 2024-08-10 19:25 | Outpatient (BNV) | payer OTHER, SELFPAY | PROVIDERS: Admitting Provider Nurse Practitioner Family; Emergency Provider Emergency Medicine; PCP Internal Medicine; Visit Provider Nurse Practitioner Family | DX: R47.81 Slurred speech (principal) | CPT/HCPCS: 99223; 99233; 99239 ==